=== PATIENT | female | born 1985 | race Caucasian/White ===

== ENCOUNTER 2017-05-02 08:21 | Emergency (ER) | payer OTHER ==
[~2017-05-02] VITALS: Ht 160 cm; Wt 58.0 kg
[~2017-05-02 08:21] MED LIST: DICY10CA55 PO; ETON1IMP2 SUBD; SUMA50TA15 PO
[2017-05-02 08:25] VITALS: Ht 160 cm; Wt 58.0 kg
[2017-05-02] MEDS ORDERED: SODIUM CHLORIDE 0.9% 1000ML 1,000 ML IV STA (08:44)
--- NOTE | 2017-05-02 08:50 | EMERGENCY ROOM VISIT NOTE ---
History First contact with patient: 08:32 Chief Complaint: SYNCOPE Stated Complaint: PASING OUT History of Present Illness The patient is a 31 year old female who presents to the Emergency Room with complaints of lightheadedness and general weakness/fatigue for the past 3 days. She states her symptoms started while driving through a tunnel, states she felt claustrophobic, tingly all over, and then her vision blacked out. 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 She states she has had 3 more episodes of feeling like she might pass out, all while driving, including this morning while driving to work, and she has been feeling tired and "off" all morning. She did not eat or drink anything today. She notes she has been having loose stools, she is concerned she might be dehydrated. She also states that she has been under a lot of stress recently, and feels this could be anxiety. She reports a history of ASD repair at age 3, states her caddy packer cleared her since age 14, with no ongoing complications or maintenance medications. She denies chest pain, SOB, palpitations, abdominal pain, nausea, vomiting, blood in stool, dysuria or hematuria, rash. Review of Systems A complete 10 point review of systems was reviewed with the patient with pertinent positives and negatives as per history of present illness. All else were negative. 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 Family History No pertinent family history Social History Smoking Status: Current Every Day Smoker Alcohol Use: none Drug Use: none Marital Status: single Housing Status: lives alone Occupation Status: employed, student Current/Historical Medications Scheduled Etonogestrel (Nexplanon), 68 MG SUBD UD Scheduled PRN Sumatriptan Succinate (Imitrex), Unknown Dose PO PRN PRN for Migraine Allergies Coded Allergies: Penicillins (Verified Allergy, Severe, NAUSEA, 05/02/17) Amoxicillin (Unverified Allergy, Unknown, NAUSEATED, 05/02/17) Clavulanic Acid (Unverified Allergy, Unknown, NAUSEATED, 05/02/17) Physical Exam Vital Signs Date Time Temp Pulse Resp B/P (MAP) Pulse Ox O2 Delivery O2 Flow Rate FiO2 05/02/17 10:56 36.5 65 21 110/56 99 05/02/17 10:29 65 21 05/02/17 09:59 70 20 99 05/02/17 09:54 110/56 05/02/17 08:55 98 Room Air 05/02/17 08:54 132/91 05/02/17 08:53 126/78 05/02/17 08:52 64 121/72 77 126/78 91 132/91 05/02/17 08:51 64 17 121/72 05/02/17 08:41 76 05/02/17 08:25 36.5 84 20 141/95 100 Room Air Physical Exam CONSTITUTIONAL: No acute distress. Well appearing and well nourished. Alert and oriented X 4 with normal affect. HEENT: Normocephalic, atraumatic. Pupils equal, round and reactive to light, EOMI. TMs normal. Pharynx normal. Moist mucous membranes. NECK: Supple, full active range of motion without discomfort. RESPIRATORY: Clear to auscultation bilaterally with no wheezing, crackles, rhonchi or stridor. Equal expansion bilaterally. CARDIOVASCULAR: Regular rate and rhythm with no murmurs, rubs or gallops. Normal peripheral perfusion. No edema. GASTROINTESTINAL: Soft, nontender, nondistended. Bowel sounds present in all quadrants. MUSCULOSKELETAL: Full range of motion of all joints without discomfort. INTEGUMENTARY: No rash or other significant dermatologic conditions noted. NEUROLOGIC: Cranial nerves II-XII grossly intact. No focal neurologic deficits noted. Normal strength, normal sensation, normal gait, normal speech, normal finger nose finger testing and negative Romberg. Medical Decision & Procedures ER Provider Diagnostic Interpretation: CHEST 2 VIEWS ROUTINE CLINICAL HISTORY: presyncope HISTORY OF ASD REPAIR COMPARISON STUDY: 07/09/2011 FINDINGS: There are postsurgical changes of a midline sternotomy. The cardiac and mediastinal contours are normal. There is no focal pulmonary consolidation. There is no failure. There are no pleural effusions. IMPRESSION: No active disease in the chest. Laboratory Results 05/02/17 09:05 Red Blood Count 4.97, Mean Corpuscular Volume 88.7, Mean Corpuscular Hemoglobin 31.2, Mean Corpuscular Hemoglobin Concent 35.1, Mean Platelet Volume 10.6, Neutrophils (%) (Auto) 63.7, Lymphocytes (%) (Auto) 23.4, Monocytes (%) (Auto) 10.1, Eosinophils (%) (Auto) 2.2, Basophils (%) (Auto) 0.4, Neutrophils # (Auto ) 6.20, Lymphocytes # (Auto) 2.28, Monocytes # (Auto) 0.98, Eosinophils # (Auto ) 0.21, Basophils # (Auto) 0.04 05/02/17 09:05 Test 05/02/17 08:30 05/02/17 09:05 Urine Color YELLOW Urine Appearance CLEAR (CLEAR) Urine pH 5.5 (4.5-7.5) Urine Specific [place] 1.011 (1.000-1.030) Urine Protein NEG (NEG) Urine Glucose (UA) NEG (NEG) Urine Ketones NEG (NEG) Urine Occult Blood NEG (NEG) Urine Nitrite NEG (NEG) Urine Bilirubin NEG (NEG) Urine Urobilinogen NEG (NEG) Urine Leukocyte Esterase NEG (NEG) White Blood Count 9.73 K/uL (4.8-10.8) Red Blood Count 4.97 M/uL (4.2-5.4) Hemoglobin 15.5 g/dL (12.0-16.0) Hematocrit 44.1 % (37-47) Mean Corpuscular Volume 88.7 fL (80-100) Mean Corpuscular Hemoglobin 31.2 pg (25-34) Mean Corpuscular Hemoglobin Concent 35.1 g/dl (32-36) Platelet Count 221 K/uL (130-400) Mean Platelet Volume 10.6 fL (7.4-10.4) Neutrophils (%) (Auto) 63.7 % Lymphocytes (%) (Auto) 23.4 % Monocytes (%) (Auto) 10.1 % Eosinophils (%) (Auto) 2.2 % Basophils (%) (Auto) 0.4 % Neutrophils # (Auto) 6.20 K/uL (1.4-6.5) Lymphocytes # (Auto) 2.28 K/uL (1.2-3.4) Monocytes # (Auto) 0.98 K/uL (0.11-0.59) Eosinophils # (Auto) 0.21 K/uL (0-0.5) Basophils # (Auto) 0.04 K/uL (0-0.2) RDW Standard Deviation 42.4 fL (36.4-46.3) RDW Coefficient of Variation 13.0 % (11.5-14.5) Immature Granulocyte % (Auto) 0.2 % Immature Granulocyte # (Auto) 0.02 K/uL (0.00-0.02) Anion Gap 8.0 mmol/L (3-11) Est Creatinine Clear Calc Drug Dose 62.4 ml/min Estimated GFR () 79.2 Estimated GFR (Non- 68.3 BUN/Creatinine Ratio 12.5 (10-20) Calcium Level 8.7 mg/dl (8.5-10.1) Total Bilirubin 0.3 mg/dl (0.2-1) Direct Bilirubin < 0.1 mg/dl (0-0.2) Aspartate Amino Transf (AST/SGOT) 15 U/L (15-37) Alanine Aminotransferase (ALT/SGPT) 19 U/L (12-78) Alkaline Phosphatase 93 U/L (45-117) Total Protein 8.1 gm/dl (6.4-8.2) Albumin 4.3 gm/dl (3.4-5.0) Thyroid Stimulating Hormone (TSH) 0.441 uIu/ml (0.300-4.500) Medications Administered Medications (Trade) Dose Ordered Sig/Tien Route Start Time Stop Time Status Last Admin Dose Admin Sodium Chloride 1,000 ml @ 999 mls/hr Q1H1M STAT IV 05/02/17 08:44 05/02/17 09:44 DC 05/02/17 08:44 999 MLS/HR ECG Indication: syncope Rate (beats per minute): 76 Rhythm: normal sinus Findings: no acute ischemic change, no ectopy Change: no significant change (when compared to EKG from 07/09/2011) Medical Decision CC: Patient presenting with complaint of dizziness, generalized fatigue Interpretation of Labs: No leukocytosis, no anemia, no significant joint abnormalities, normal renal function, normal liver enzymes. TSH normal. UA negative, negative urine . Differential Diagnosis: Includes, but not limited to syncope, presyncope, orthostasis, vasovagal, cardiac dysrhythmia, dehydration, electrolyte abnormality, thyroid disorder, UTI, , anxiety, among others. Medication Reconciliation: I attest that I have personally reviewed the patient' s current medication list. Vital signs review: I reviewed the patient's vital signs and interpret them as follows: T: Afebrile; BP: Hypertensive; HR: Within normal limits; RR: Within normal limits; Pulse Ox: Within normal limits on room air. Blood pressure screening: The patient was found to have an elevated blood pressure, on subsequent rechecks this return to normal, and was felt to be situational. Summary: Patient was evaluated at bedside, history and physical exam performed. Patient is oriented, in no acute distress, resting comfortably in the stretcher. Normal neuro exam, heart and lung exam unremarkable. Patient does not appear to be significantly dehydrated clinically. Patient does note significant increase in stress recently, and states she is feeling anxious. EKG reviewed at bedside, NSR with no acute changes when compared to previous. Orders were placed at bedside for labs, UA and , IV fluids for hydration, CXR to evaluate for cardiopulmonary disease. Patient discussed with Dr. Merritt, who agrees with my assessment and plan. Labs reviewed as above, no acute abnormalities. She is not . CXR clear. Patient was noted to have orthostatic heart rate, she did feel somewhat better after IV fluids. She does state that occasionally she has "feeling like my surroundings aren't normal" and states she is feeling a little anxious. She denies any persistent symptoms of dizziness or lightheadedness at this time. I discussed all results with the patient and plan for discharge home, and encouraged close follow-up with her PCP. She may benefit from a Holter monitor if her symptoms continue. Patient was instructed specifically not to drive until she has been cleared by her PCP, she verbalized understanding. She was also given strict return precautions should her symptoms worsen. The patient was comfortable with discharge at this time. Patient was discharged home in stable condition and ambulatory. Impression Primary Impression: Lightheaded Additional Impression: Near syncope Departure Information Dispostion Home / Self-Care Condition GOOD Referrals Boy No III, M.D. (PCP) Patient Instructions ED Near Syncope [place], My [facility] Additional Instructions You have been evaluated in the emergency department today for symptoms of dizziness/lightheadedness. Lab results and imaging studies today do not show any indications for admission to the hospital or surgery. DO NOT DRIVE until you have been cleared by your primary care provider. You may be slightly dehydrated, make sure you are drinking plenty of fluids throughout the day. Call to schedule a follow-up appointment with your primary care provider in the next few days. Please return to the emergency department for any worsening symptoms, including chest pain, shortness of breath, palpitations, severe dizziness or passing out, persistent vomiting, severe headache, balance problems or difficulty walking, or any other concerns. Work Instructions Additional Work Instructions: May return to work, but may not drive until she is cleared by her primary care provider. Problem Qualifiers
[2017-05-02 08:55] VITALS: O2SAT 98
[2017-05-02 09:04] LABS: URINE APPEARANCE CLEAR (CLEAR); URINE BILIRUBIN NEG (NEG); URINE COLOR YELLOW; URINE NITRITE NEG (NEG); URINE PH 5.5 (4.5-7.5); URINE SPECIFIC GRAVITY 1.011 (1.000-1.030); UROBILINOGEN NEG (NEG)
[2017-05-02 09:07] LABS: MANUAL MICROSCOPIC REQUIRED? NO; REVIEW REQ? NO
[2017-05-02 09:24] LABS: BASO % 0.4 %; BASO ABS # 0.04 K/uL (0-0.2); COMPLETE YES; EOS % 2.2 %; HEMATOCRIT 44.1 % (37-47); IG% 0.2 %; LYMPH % 23.4 %; LYMPH ABS # 2.28 K/uL (1.2-3.4); MEAN CELL VOLUME 88.7 fL (80-100); MEAN CORPUSCULAR HEMOGLOBIN 31.2 pg (25-34); MEAN CORPUSCULAR HGB CONC 35.1 g/dl (32-36); MEAN PLATELET VOLUME 10.6 fL (7.4-10.4); MONO % 10.1 %; NEUT % 63.7 %; PLATELET COUNT 221 K/uL (130-400); RED BLOOD COUNT 4.97 M/uL (4.2-5.4); WHITE BLOOD COUNT 9.73 K/uL (4.8-10.8)
[2017-05-02 09:40] LABS: ALT/SGPT 19 U/L (12-78); BLOOD UREA NITROGEN 14 mg/dl (7-18); BUN/CREATININE RATIO 12.5 (10-20); CALCIUM 8.7 mg/dl (8.5-10.1); CARBON DIOXIDE 22 mmol/L (21-32); CHLORIDE 110 mmol/L (98-107); CREATININE 1.08 mg/dl (0.60-1.20); GLUCOSE 97 mg/dl (70-99); POTASSIUM 3.9 mmol/L (3.5-5.1); SODIUM 140 mmol/L (136-145)
--- NOTE | 2017-05-02 09:48 | DIAGNOSTIC IMAGING REPORT ---
CHEST 2 VIEWS ROUTINE CLINICAL HISTORY: presyncope HISTORY OF ASD REPAIR COMPARISON STUDY: 07/09/2011 FINDINGS: There are postsurgical changes of a midline sternotomy. The cardiac and mediastinal contours are normal. There is no focal pulmonary consolidation. There is no failure. There are no pleural effusions.[ IMPRESSION: No active disease in the chest. Electronically signed by: Jomar Diaz M.D. 05/02/2017 9:47 AM Dictated Date/Time: 05/02/2017 9:47 AM
[2017-05-02 09:51] LABS: ALKALINE PHOSPHATASE 93 U/L (45-117); AST/SGOT 15 U/L (15-37); THYROID STIMULATING HORMONE 0.441 uIu/ml (0.300-4.500)
[2017-05-02 10:56] VITALS: BP 110/56; PULSE 65; TEMP 36.5; O2SAT 99
== END 2017-05-02 10:58 | disposition home or self-care (01) ==
LOC: C.EDB 08:22
DX: R42 Dizziness and giddiness (principal); M19.90 Unspecified osteoarthritis, unspecified site; F43.10 Post-traumatic stress disorder, unspecified; F32.9 Major depressive disorder, single episode, unspecified; F17.210 Nicotine dependence, cigarettes, uncomplicated; Z79.3 Long term (current) use of hormonal contraceptives

== ENCOUNTER 2017-06-02 15:09 | Emergency (ER) | payer OTHER ==
[~2017-06-02] VITALS: Ht 160 cm; Wt 57.7 kg
[~2017-06-02 15:09] MED LIST changes: -DICY10CA55 PO
[2017-06-02 15:18] VITALS: TEMP 36.9; Ht 160 cm; Wt 57.7 kg
[2017-06-02] MEDS ORDERED: CLIN300C10 PO (15:44)
[2017-06-02] MEDS ORDERED: HYDR-5688 PO (15:44)
[2017-06-02 16:07] VITALS: BP 104/74; PULSE 52; O2SAT 100
--- NOTE | 2017-06-02 17:28 | EMERGENCY ROOM VISIT NOTE ---
ED Visit Note First contact with patient: 15:22 CHIEF COMPLAINT: Severe dental pain. HISTORY OF PRESENT ILLNESS: Ms. Elizabeth is a 31-year-old white female who ambulates into the ED complaining of right mandibular dental pain. Historically patient reports a history of a root canal without And fracture of tooth 30. She reports a progressive dental pain for 18 hours over the right mandible in the area of tooth 30. Initially it was mild and has gradually increased in intensity. Currently she is describes the pain as a sharp and throbbing sensation. She rates her discomfort 9/10. The pain is radiating into the angle of the mandible. Her pain worsens with palpation and chewing. She has not identified any alleviating factors related to the pain. She reports she has been using ibuprofen and acetaminophen without relief of her discomfort. Associated with her pain she reports she has noted some facial swelling in the area of her pain. She denies associated symptoms including fevers, chills, sweats, skin eruptions, skin color changes, sore throat, difficulty swallowing, voice changes , drooling. REVIEW OF SYSTEMS: As noted above in History of Present Illness. 8 body systems were reviewed with this patient and found to be negative unless noted above otherwise. PMH: Migraine headaches, degenerative disc disease, arthritis, depression, posttraumatic stress disorder, status post open heart ASD repair. CURRENT MEDICATION: control, Imitrex. ALLERGIES TO MEDICATION: Augmentin. SOCIAL HISTORY: Patient is currently employed; she feels safe in her home environment; she admits to tobacco use and denies alcohol use. PHYSICAL EXAM: Vital Signs: Date Time Temp Pulse Resp B/P (MAP) Pulse Ox O2 Delivery O2 Flow Rate FiO2 06/02/17 16:07 52 18 104/74 100 06/02/17 15:18 36.9 66 18 131/84 100 Room Air General: 31 year-old white female in mild to moderate distress due to pain, nontoxic appearing, afebrile and hemodynamically stable. Neurological: Awake, alert and oriented to person, place and time. Answering questions appropriately and following commands. Normal gait. Good hand eye coordination. Skin: Warm, dry and pink. HEENT: Atraumatic and normocephalic. Mild facial swelling noted over the right mandible. No erythema. There is mild tenderness in this area. Oral cavity is moist and pink. Airway is patent. Speech is normal. No drooling. Tooth #30: Shows the posterior medial aspect of the tooth is missing. The gingiva is mildly erythematous and edematous. The tooth is tender to palpation but stable in the socket. I am unable to palpate an abscess directly. Mild submandibular lymphadenopathy was noted. No cervical lymphadenopathy. ED COURSE: Patient is assessed as noted above. Patient's medication list was reviewed. Patient is educated about her findings and instructed on her treatment plan; she verbalizes understanding and agreement with this plan. CLINIC IMPRESSION: Dental pain. Possible early dental abscess. DISPOSITION: Patient discharged home in stable condition; prior to departure she was reassessed and subjectively reported she was feeling the same. PLAN: Patient was prescribed clindamycin 300 mg times a day for 10 days. Patient was placed on a sliding pain scale of ibuprofen, acetaminophen and [place] ; patient was given appropriate narcotic precautions and her name was checked on state database and no red flags were noted. Patient was encouraged to keep her mouth clean with brushing, flossing and gargling with salt water 4-5 times a day. Patient was encouraged to use a liquid/mechanical soft diet room temperature. Patient was encouraged to cover the affected tooth with dental wax. Patient was encouraged to follow-up with dentist as soon as practical. Patient was encouraged return ED for worsening symptoms, fevers or any new/ concerning symptoms.
== END 2017-06-02 16:07 | disposition home or self-care (01) ==
LOC: C.EDB 15:10 → C.EDD 16:07
DX: K03.81 Cracked tooth (principal); F17.200 Nicotine dependence, unspecified, uncomplicated; Z79.3 Long term (current) use of hormonal contraceptives

== ENCOUNTER 2017-09-30 14:46 | Emergency (ER) | payer OTHER ==
[~2017-09-30] VITALS: Ht 160 cm; Wt 58.7 kg
[~2017-09-30 14:46] MED LIST changes: +CLIN300C10 PO; +HYDR-5688 PO
[2017-09-30 14:51] VITALS: BP 124/74; PULSE 71; TEMP 37.1; O2SAT 99; Ht 160 cm; Wt 58.7 kg
--- NOTE | 2017-09-30 15:10 | EMERGENCY ROOM VISIT NOTE ---
ED Visit Note First contact with patient: 14:55 CHIEF COMPLAINT: Toothache HISTORY OF PRESENT ILLNESS: This 31-year-old female presents to ER with chief complaint of right lower molar tooth pain. She states she is concerned about infection. The patient states that she was seen here in May for the same tooth. She went to her dentist at that time to get the tooth removed but her dentist stated that did not need to be removed. The patient states since that time more pieces of tooth have broken off. She states the edges are sharp. The patient states the pain is now radiating down into the right side of her neck. The patient denies any facial's pain or swelling. She has not taken anything for pain today. REVIEW OF SYSTEMS: 6 system review was performed and was negative unless stated otherwise in history of present illness. PMH: The patient is healthy; ASD repair SOCIAL HISTORY: Patient admits to tobacco use but denies any alcohol use. PHYSICAL EXAM: Vital Signs: Were reviewed reviewed Nurse's notes. General: 31- year-old white female appears in no acute distress. MENTAL Status: Alert and oriented 3. MOUTH: The #30 tooth with diffuse decay and a portion of it broken off. There is sharp edges on the medial aspect of the tooth. Surrounding gingiva without erythema or edema. The tooth is very tender to percussion. FACE: No facial swelling noted. NECK: Supple, no lymphadenopathy noted although patient is tender to palpation over the right anterior cervical chain. EMERGENCY COURSE: The patient was evaluated. Patient was given dental wax and directed on how to use the wax. The patient was given clindamycin 300 mg p.o. while in the ER. The patient was discharged home in stable condition. DIAGNOSIS: Dental caries and dentalgia DISCHARGE INSTRUCTIONS & TREATMENT: Ibuprofen 600 mg every 6 hours with food for pain. Use dental wax as directed. Take clindamycin as prescribed. Appointment with your dentist as soon as possible for definitive care. Problem List Medical Problems: (1) Arthritis Status: Chronic (2) Chronic post-traumatic stress disorder Status: Chronic (3) degenerative disc disease Status: Chronic (4) Migraine Status: Chronic (5) Moderate recurrent major depression Status: Chronic (6) open heart ASD Status: Resolved Current/Historical Medications Scheduled Clindamycin Hcl (Clindamycin Hcl), 300 MG PO QID Etonogestrel (Nexplanon), 68 MG SUBD UD Scheduled PRN Hydrocodone/Acetaminophen 5MG/325MG ([place] 5MG/325MG), 1-2 TABLET PO Q6H PRN for Pain Sumatriptan Succinate (Imitrex), Unknown Dose PO PRN PRN for Migraine Allergies Coded Allergies: Penicillins (Verified Allergy, Severe, NAUSEA, 06/02/17) Amoxicillin (Unverified Allergy, Unknown, NAUSEATED, 06/02/17) Clavulanic Acid (Unverified Allergy, Unknown, NAUSEATED, 06/02/17) Vital Signs Date Time Temp Pulse Resp B/P (MAP) Pulse Ox O2 Delivery O2 Flow Rate FiO2 09/30/17 14:51 37.1 71 18 124/74 99 Room Air Departure Information Referrals Boy No III, M.D. (PCP) Patient Instructions My [facility]
[2017-09-30] MEDS ORDERED: CLIN300C2 PO (15:11)
[2017-09-30] MEDS ORDERED: CLINDAMYCIN HCL 150 MG CAP PO ONE (15:15)
== END 2017-09-30 15:28 | disposition home or self-care (01) ==
LOC: C.EDB 14:47 → C.EDD 15:28
DX: K02.9 Dental caries, unspecified (principal); Z72.0 Tobacco use; M19.90 Unspecified osteoarthritis, unspecified site; F43.10 Post-traumatic stress disorder, unspecified; F32.9 Major depressive disorder, single episode, unspecified; Z79.3 Long term (current) use of hormonal contraceptives; Z88.0 Allergy status to penicillin

== ENCOUNTER 2022-03-30 21:20 | Inpatient (IN) ==
[2022-03-30 21:58] LABS: Basophils # (auto) 0.09 K/uL (0-0.2); Basophils % (auto) 0.9 %; Eosinophils # (auto) 0.12 K/uL (0-0.50); Eosinophils % (auto) 1.2 %; Hematocrit (blood only) 39.1 % (34.1-44.9); Hemoglobin 14.3 g/dl (12.0-16.0); Immature Granulocytes # (auto) 0.03 K/uL (0.00-0.02); Immature Granulocytes % (auto) 0.3 %; Lymphocytes # (auto) 4.02 K/uL (1.2-3.4); Lymphocytes % (auto) 40.4 %; Mean Corpuscular Hemoglobin 34.3 pg (25.0-34.0); Mean Corpuscular Hgb Conc 36.6 g/dL (32.0-36.0); Mean Corpuscular Volume 93.8 fL (80.0-100.0); Monocytes # (auto) 1.15 K/uL (0.24-0.82); Monocytes % (auto) 11.6 %; Neutrophils # (auto) 4.54 K/uL (1.4-6.5); Neutrophils % (auto) 45.6 %; Platelet Count 255 K/uL (130-400); RDW Standard Deviation 44.7 fL (36.4-46.3); Red Blood Count 4.17 M/uL (3.93-5.22); White Blood Count 9.95 K/ul (4.8-10.8)
[2022-03-30 22:17] LABS: Albumin Globulin Ratio 1.4 (0.9-2); Albumin Level 4.3 gm/dl (3.4-5.0); BUN Creatinine Ratio 17.2 (10-20); Bilirubin,Total 0.4 mg/dl (0.2-1.0); Calcium 8.5 mg/dl (8.5-10.1); Creatinine Clr Calc Pharmacy 82.1 ml/min; Est GFR (African American) 99.3 ml/min; Est GFR (Non-African American) 85.7 ml/min; Potassium 3.7 mmol/L (3.5-5.1); Total Protein 7.3 gm/dl (6.0-8.3)
[2022-03-30 22:39] LABS: Appearance Urine Clear (Clear); Bilirubin Urine Negative (Negative); Blood Urine Negative (Negative); Color Urine Yellow; Glucose Urine UA Negative (Negative); Ketones Urine Negative (Negative); Leukocyte Esterase Urine Negative (Negative); Nitrite Urine Negative (Negative); Protein Urine Negative (Negative); Specific Gravity Urine 1.005 (1.000-1.030); Urobilinogen Urine Negative (Negative); pH Urine 6.5 (4.5-7.5)
[2022-03-30] MEDS ORDERED: ONDANSETRON INJ 2 MG/ML 2 ML VIAL IV STA (22:41)
[2022-03-31] MEDS ORDERED: LORazepam 2 MG/2 ML SYR IV STA (00:35)
[2022-03-31] MEDS ORDERED: ACETAMINOPHEN 500 MG TAB PO STA (01:10)
[2022-03-31] MEDS ORDERED: MULTI-VITAMIN INFUSION 10 ML, THIAMINE HCL 100 MG, FOLIC ACID 1 MG in SODIUM CHLORIDE 0... IV ONE (01:11)
[2022-03-31] MEDS ORDERED: GABAPENTIN 600 MG TAB PO STA (02:02)
[2022-03-31] MEDS ORDERED: POTASSIUM CHLORIDE PWD 20 MEQ PACK PO STA (02:04)
--- NOTE | 2022-03-31 03:06 | History & Physical Report ---
Date of Service March 31, 2022 Assessment & Plan (1) Alcohol withdrawal: Plan: hx ASD status post surgery migraine, patient currently with headache symptoms which he attributes to alcohol cessation anxiety/mood disorder, patient not suicidal, would like to resume taking outpatient prescriptions which she has not taken for a few months. past tobacco abuse Medical telemetry GRAYSON S, DT precautions Toradol for migraine attack DVT prophylaxis. Lovenox subcu Full code Text document was generated using [employer] voice recognition software. It may contain grammatical or spelling errors. Kindly contact undersigned for clarification of any documentation item in question. History of Present Illness Chief Complaint: Detox Primary Care Provider: Dr. No History obtained from patient and records. Medical history significant for ASD status post surgery, migraine, anxiety/mood disorder, ongoing alcohol abuse, past tobacco abuse. [facility] seeking outpatient alcohol rehab. Patient directed to ER for detox. Patient denies chest pain, SOB, abdominal pain. Usual migraine attack which is triggered when she stops drinking. Prior history of alcohol withdrawal seizures to her knowledge. Medical History as above Surgical History : Open heart surgery, cervical cryocautery Family History : Rheumatoid arthritis, SLE Personal/Social history : Past tobacco abuse, alcohol abuse, currently unemployed Allergies Allergy/AdvReac Type Severity Reaction Status Date / Time Penicillins Allergy Severe NAUSEA Verified 05/16/18 17:15 amoxicillin Allergy Unknown NAUSEATED Unverified 05/16/18 17:15 clavulanic acid Allergy Unknown NAUSEATED Unverified 05/16/18 17:15 Home Medications Medication Instructions Recorded Confirmed Type etonogestrel 68 mg subdermal 68 mg subdermal YEARLY 05/16/18 03/31/22 History implant (Nexplanon) control dicyclomine 10 mg capsule 10 mg PO TID PRN Abdominal 03/31/22 03/31/22 History Discomfort hydroxyzine HCl 10 mg tablet 10 mg PO Q4H PRN Anxiety 03/31/22 03/31/22 History sertraline 50 mg tablet 50 mg PO DAILY 03/31/22 03/31/22 History Past Med/Surg History Medical History (Updated 03/31/22 @ 07:44 by Asiya Savage DO) Chronic post-traumatic stress disorder (07/18/11) Headache Near syncope Pain, dental Rectal bleed Social History Smoking Status: Current every day smoker Tobacco Cessation Education Requested by Patient: No Hx Alcohol Use: Yes Alcohol type: hard liquor Hx Substance Use: No Preferred Language: Indonesian Communication Ability: Effective [employer]ter Required: Yes Beliefs That Will Affect Care: None Feels Safe at Home: Yes Assistive Devices: None Review of Systems Review of Systems: As per HPI, all other systems reviewed and negative Physical Exam Physical Exam: GENERAL: uncomfortable, looks older than stated age, no respiratory distress SKIN: Normal color, warm HEENT: [place] palpebral conjunctivae, no ptosis, dry buccal mucosa NECK : Supple, no tenderness CHEST : CTA, no tenderness HEART : Tachycardic, no obvious murmurs ABDOMEN: Some distention, nontender EXTREMITIES : Minimal LE swelling, no LE tenderness, no other conspicuous deformities noted NEUROLOGIC : Coherent, no facial asymmetry, no other gross focality Results & Data Results & Data ([facility]) Vital Signs (Past 12 Hours) Vital Signs Temp Pulse Resp BP Pulse Ox O2 Del Method 03/31/22 01:05 115 H 19 03/31/22 00:31 92 H 20 03/31/22 00:31 124/90 03/31/22 00:30 91 H 26 H 03/31/22 00:01 88 23 03/31/22 00:01 122/92 03/31/22 00:00 87 22 03/30/22 23:31 93/80 L 03/30/22 23:31 86 16 100 03/30/22 23:30 85 21 98 03/30/22 23:26 85 20 99 03/30/22 23:26 123/80 03/30/22 23:01 90 27 H 03/30/22 23:01 118/62 03/30/22 23:00 91 H 27 H 03/30/22 22:42 121 H 25 H 03/30/22 21:25 36.4 C L 112 H 20 150/92 H 97 Room Air Laboratory Results Laboratory Results WBC 9.95 K/ul (4.8-10.8) 03/30/22 21:40 RBC 4.17 M/uL (3.93-5.22) 03/30/22 21:40 Hgb 14.3 g/dl (12.0-16.0) 03/30/22 21:40 Hct 39.1 % (34.1-44.9) 03/30/22 21:40 MCV 93.8 fL (80.0-100.0) 03/30/22 21:40 MCH 34.3 pg (25.0-34.0) H 03/30/22 21:40 MCHC 36.6 g/dL (32.0-36.0) H 03/30/22 21:40 RDW Std Deviation 44.7 fL (36.4-46.3) 03/30/22 21:40 RDW Coeff of Aparna 13.0 % (11.5-14.5) 03/30/22 21:40 Plt Count 255 K/uL (130-400) 03/30/22 21:40 MPV 10.0 fL (9.4-12.3) 03/30/22 21:40 Immature Gran % (Auto) 0.3 % 03/30/22 21:40 Neut % (Auto) 45.6 % 03/30/22 21:40 Lymph % (Auto) 40.4 % 03/30/22 21:40 [place] % (Auto) 11.6 % 03/30/22 21:40 Eos % (Auto) 1.2 % 03/30/22 21:40 Baso % (Auto) 0.9 % 03/30/22 21:40 Neut # (Auto) 4.54 K/uL (1.4-6.5) 03/30/22 21:40 Lymph # (Auto) 4.02 K/uL (1.2-3.4) H 03/30/22 21:40 [place] # (Auto) 1.15 K/uL (0.24-0.82) H 03/30/22 21:40 Eos # (Auto) 0.12 K/uL (0-0.50) 03/30/22 21:40 Baso # (Auto) 0.09 K/uL (0-0.2) 03/30/22 21:40 Immature Gran # (Auto) 0.03 K/uL (0.00-0.02) H 03/30/22 21:40 Sodium 138 mmol/L (136-145) 03/30/22 21:40 Potassium 3.7 mmol/L (3.5-5.1) 03/30/22 21:40 Chloride 108 mmol/L (98-107) H 03/30/22 21:40 Carbon Dioxide 21 mmol/L (21-32) 03/30/22 21:40 Anion Gap 9 (3-11) 03/30/22 21:40 BUN 15 mg/dl (6-23) 03/30/22 21:40 Creatinine 0.87 mg/dl (0.6-1.2) 03/30/22 21:40 Est Cr Clr Drug Dosing 82.1 ml/min 03/30/22 21:40 Est GFR ( Amer) 99.3 ml/min 03/30/22 21:40 Est GFR (Non-Af Amer) 85.7 ml/min 03/30/22 21:40 BUN/Creatinine Ratio 17.2 (10-20) 03/30/22 21:40 Glucose 106 mg/dl (70-99(Fasting)) H 03/30/22 21:40 Calcium 8.5 mg/dl (8.5-10.1) 03/30/22 21:40 Total Bilirubin 0.4 mg/dl (0.2-1.0) 03/30/22 21:40 AST 26 U/L (13-39) 03/30/22 21:40 ALT 19 U/L (7-52) 03/30/22 21:40 Alkaline Phosphatase 83 U/L (34-104) 03/30/22 21:40 Total Protein 7.3 gm/dl (6.0-8.3) 03/30/22 21:40 Albumin 4.3 gm/dl (3.4-5.0) 03/30/22 21:40 Globulin 3.0 gm/dl (2.5-4.0) 03/30/22 21:40 Albumin/Globulin Ratio 1.4 (0.9-2) 03/30/22 21:40 Urine Color Yellow 03/30/22 22:13 Urine Appearance Clear (Clear) 03/30/22 22:13 Urine pH 6.5 (4.5-7.5) 03/30/22 22:13 Ur Specific [place] 1.005 (1.000-1.030) 03/30/22 22:13 Urine Protein Negative (Negative) 03/30/22 22:13 Urine Glucose (UA) Negative (Negative) 03/30/22 22:13 Urine Ketones Negative (Negative) 03/30/22 22:13 Urine Blood Negative (Negative) 03/30/22 22:13 Urine Nitrite Negative (Negative) 03/30/22 22:13 Urine Bilirubin Negative (Negative) 03/30/22 22:13 Urine Urobilinogen Negative (Negative) 03/30/22 22:13 Ur Leukocyte Esterase Negative (Negative) 03/30/22 22:13 Ethyl Alcohol mg/dL 327.8 mg/dl (<10.0) H 03/30/22 21:40 SARS-CoV-2, RNA, NAAT NEGATIVE (NEGATIVE) 03/31/22 01:16 Diagnostic Findings EKG as per my interpretation : Rate 100, NSR, normal axis, T wave abnormality septal leads
[2022-03-31] MEDS ORDERED: KETOROLAC TROMETHAMINE 15 MG/ML VIAL IV STA (03:08)
[2022-03-31] MEDS ORDERED: Ativan IV Alcohol Withdrawal--Active Protocol IV PRN (03:11)
[2022-03-31] MEDS ORDERED: LORazepam 3 MG in SYRINGE 0 ML IV PRN (03:11)
[2022-03-31] MEDS ORDERED: PROMETHAZINE HCL 12.5 MG in SODIUM CHLORIDE 0.9% 50 ML IV PRN ×2 (03:11→04:38)
[2022-03-31] MEDS ORDERED: IBUPROFEN 200 MG TAB PO PRN (03:11)
[2022-03-31] MEDS ORDERED: hydrOXYzine HCl 10 MG TAB PO PRN (03:14)
[2022-03-31] MEDS ORDERED: DICYCLOMINE HCL 10 MG CAP PO PRN (03:14)
[2022-03-31 04:31] LABS: Pregnancy Test, Urine Negative (Negative)
[2022-03-31] MEDS ORDERED: LACTATED RINGER'S 1,000 ML IV ONE (04:36)
[2022-03-31] MEDS ORDERED: GABAPENTIN 1200MG ALCOHOL WITHDRAWAL LOAD PO STA (04:38)
[2022-03-31 07:02] LABS: Basophils # (auto) 0.06 K/uL (0-0.2); Basophils % (auto) 1.1 %; Eosinophils # (auto) 0.07 K/uL (0-0.50); Eosinophils % (auto) 1.3 %; Hematocrit (blood only) 34.7 % (34.1-44.9); Hemoglobin 12.2 g/dl (12.0-16.0); Immature Granulocytes # (auto) 0.02 K/uL (0.00-0.02); Immature Granulocytes % (auto) 0.4 %; Lymphocytes # (auto) 2.17 K/uL (1.2-3.4); Lymphocytes % (auto) 39.7 %; Mean Corpuscular Hemoglobin 33.3 pg (25.0-34.0); Mean Corpuscular Hgb Conc 35.2 g/dL (32.0-36.0); Mean Corpuscular Volume 94.8 fL (80.0-100.0); Mean Platelet Volume 10.1 fL (9.4-12.3); Monocytes # (auto) 0.64 K/uL (0.24-0.82); Monocytes % (auto) 11.7 %; Neutrophils % (auto) 45.8 %; Platelet Count 208 K/uL (130-400); RDW Coefficient of Variation 13.1 % (11.5-14.5); RDW Standard Deviation 45.1 fL (36.4-46.3); Red Blood Count 3.66 M/uL (3.93-5.22); White Blood Count 5.46 K/ul (4.8-10.8)
[2022-03-31 07:11] LABS: BUN Creatinine Ratio 19.4 (10-20); Calcium 7.6 mg/dl (8.5-10.1); Est GFR (African American) 134.5 ml/min; Magnesium 2.1 mg/dl (1.7-2.4); Potassium 4.2 mmol/L (3.5-5.1)
--- NOTE | 2022-03-31 07:46 | Emergency Department Note ---
Impression & Plan Alcohol withdrawal Admit to the [facility] service ED Provider Note NAME: MIREYA APPIAH AGE: 36 SEX: F ARRIVES VIA: Walk-In INFORMANT: Patient ED PROVIDER(S): Asiya Savage DO CHIEF COMPLAINT: Alcohol withdrawal; detox request PLAN: Disposition: Admit to [facility] Condition: Fair MEDICAL DECISION MAKING: This is a 36-year-old female patient who presents to the emergency department with alcoholism and requests detox. Patient has been drinking a pint of tequila for more than a year now and feels as if she is physically addicted. She has fo llowed at [facility] through [facility] drug and alcohol. She is now requesting inpatient detox and referral to rehab. Her blood alcohol level was elevated more than 300 here in the emergency department. She became agitated in the emergency department due to anxiety and was given IV Ativan. She was started on IV normal saline solution and then switched to an IV banana bag. I discussed the case with the [facility] and they will evaluate for inpatient care. Triage Nursing notes reviewed and agree with them. Prior medical records reviewed Vital Signs: reviewed and remarkable for tachycardia Differential diagnosis: Alcohol intoxication; alcohol withdrawal; anxiety ER treatment provided: IV normal saline IV Ativan IV banana bag Diagnostics interpreted by me: Cardiac Monitoring: Sinus tachycardia at 104 Laboratory studies: See below HPI: 36/F arrives for evaluation of detox request. The patient describes being physically addicted to alcohol over the past year and she is requesting detox. The patient follows at [place] through [facility] drug and alcohol. They directed her here for detox and probable placement at [facility] drug and alcohol. ROS: See above HPI for pertinent positives & negatives. A total of 10 systems reviewed and were otherwise negative. PAST MEDICAL HISTORY:See Below PAST SURGICAL HISTORY:See Below FAMILY HISTORY:See Below SOCIAL HISTORY:See Below HOME MEDICATIONS:See list ALLERGIES:See list VITALS:See Below PHYSICAL EXAMINATION: HEENT: Head - normocephalic and atraumatic. Pupils are equal, round, and reactive to light. Extraocular eye muscles are intact, and sclera are anicteric. Nose - moist nasal mucosa without discharge. Mouth - moist buccal mucosa. Oropharynx is nonerythematous and there is no tonsillar exudate or edema noted. Neck: Supple; no cervical lymphadenopathy or thyromegaly Heart: Regular rate and rhythm. There is a normal S1 and S2 with no murmurs, clicks, or gallops appreciated. Lungs: Clear to auscultation bilaterally with no wheezes, rales, or rhonchi. Abdomen: Soft, completely nontender, nondistended, with good bowel sounds. T here are no palpable pulsatile masses or hepatosplenomegaly. There is no guarding, rigidity, or rebound noted. Extremities: No evidence of cyanosis, clubbing, or edema. There are easily palpable peripheral pulses. Skin: warm and dry with good turgor and no rashes; multiple tattoos ED COURSE: Times/Reassessments: 0015: Patient was evaluated in room A-10. A complete history and physical was performed. An IV lock was initiated and labs were d rawn as above. An order was placed for continuous cardiac monitoring. The patient was in a sinus tachycardia at a rate of 104. Patient was given IV normal saline solution. She was evaluated by the ED psychiatric protective services case worker. She became quite agitated and we discussed comprehensive detox and rehab facilities as they are most likely at a distance. She was given a dose of IV Ativan. I discussed the case with the [facility] and they will evaluate for further management. Asiya Savage DO Past Med/Surg History Medical History (Updated 03/31/22 @ 07:44 by Asiya Savage DO) Chronic post-traumatic stress disorder (07/18/11) Headache Near syncope Pain, dental Rectal bleed Social History Smoking Status: Current every day smoker Tobacco Cessation Education Requested by Patient: No Hx Alcohol Use: Yes Alcohol type: hard liquor Hx Substance Use: No Preferred Language: Sudanese Communication Ability: Effective [employer] Required: Yes Beliefs That Will Affect Care: None Feels Safe at Home: Yes Assistive Devices: None Allergies Allergies Allergy/AdvReac Type Severity Reaction Status Date / Time Penicillins Allergy Severe NAUSEA Verified 05/16/18 17:15 amoxicillin Allergy Unknown NAUSEATED Unverified 05/16/18 17:15 clavulanic acid Allergy Unknown NAUSEATED Unverified 05/16/18 17:15 Home Meds Home Medications Medication Instructions Recorded Confirmed etonogestrel 68 mg subdermal 68 mg subdermal YEARLY 05/16/18 03/31/22 implant (Nexplanon) control dicyclomine 10 mg capsule 10 mg PO TID PRN Abdominal 03/31/22 03/31/22 Discomfort hydroxyzine HCl 10 mg tablet 10 mg PO Q4H PRN Anxiety 03/31/22 03/31/22 sertraline 50 mg tablet 50 mg PO DAILY 03/31/22 03/31/22 Results & Data (ED) Vital Signs Vital Signs - 24 hr 03/30/22 21:25 03/30/22 22:42 03/30/22 23:00 Temperature 36.4 C L Temperature Source Temporal Artery Scan Pulse Rate 112 H 121 H 91 H Pulse Rate from SpO2 Sensor Respiratory Rate 20 25 H 27 H Respiratory Depth Normal Blood Pressure 150/92 H Blood Pressure Mean 111 Pulse Oximetry 97 Oxygen Delivery Method Room Air Sepsis New/Unexplained Change in Mental Status N/A Sepsis Action Taken by Nursing No Action Required 03/30/22 23:01 03/30/22 23:01 03/30/22 23:26 Temperature Temperature Source Pulse Rate 90 Pulse Rate from SpO2 Sensor Respiratory Rate 27 H Respiratory Depth Blood Pressure 118/62 123/80 Blood Pressure Mean 80 94 Pulse Oximetry Oxygen Delivery Method Sepsis New/Unexplained Change in Mental Status Sepsis Action Taken by Nursing 03/30/22 23:26 03/30/22 23:30 03/30/22 23:31 Temperature Temperature Source Pulse Rate 85 85 86 Pulse Rate from SpO2 Sensor 83 85 87 Respiratory Rate 20 21 16 Respiratory Depth Blood Pressure Blood Pressure Mean Pulse Oximetry 99 98 100 Oxygen Delivery Method Sepsis New/Unexplained Change in Mental Status Sepsis Action Taken by Nursing 03/30/22 23:31 03/31/22 00:00 03/31/22 00:01 Temperature Temperature Source Pulse Rate 87 Pulse Rate from SpO2 Sensor Respiratory Rate 22 Respiratory Depth Blood Pressure 93/80 L 122/92 Blood Pressure Mean 84 102 Pulse Oximetry Oxygen Delivery Method Sepsis New/Unexplained Change in Mental Status Sepsis Action Taken by Nursing 03/31/22 00:01 03/31/22 00:30 03/31/22 00:31 Temperature Temperature Source Pulse Rate 88 91 H Pulse Rate from SpO2 Sensor Respiratory Rate 23 26 H Respiratory Depth Blood Pressure 124/90 Blood Pressure Mean 101 Pulse Oximetry Oxygen Delivery Method Sepsis New/Unexplained Change in Mental Status Sepsis Action Taken by Nursing 03/31/22 00:31 03/31/22 01:05 03/31/22 02:00 Temperature Temperature Source Pulse Rate 92 H 115 H Pulse Rate from SpO2 Sensor Respiratory Rate 20 19 Respiratory Depth Blood Pressure 102/71 Blood Pressure Mean 81 Pulse Oximetry Oxygen Delivery Method Sepsis New/Unexplained Change in Mental Status Sepsis Action Taken by Nursing 03/31/22 02:00 03/31/22 02:30 03/31/22 02:30 Temperature Temperature Source Pulse Rate Pulse Rate from SpO2 Sensor Respiratory Rate 20 17 Respiratory Depth Blood Pressure 102/58 L Blood Pressure Mean 72 Pulse Oximetry Oxygen Delivery Method Sepsis New/Unexplained Change in Mental Status Sepsis Action Taken by Nursing 03/31/22 03:00 03/31/22 03:00 Temperature Temperature Source Pulse Rate 106 H Pulse Rate from SpO2 Sensor Respiratory Rate 16 Respiratory Depth Blood Pressure 108/60 Blood Pressure Mean 76 Pulse Oximetry Oxygen Delivery Method Sepsis New/Unexplained Change in Mental Status Sepsis Action Taken by Nursing Laboratory Data Result diagrams: 03/31/22 06:14 03/31/22 06:14 Lab Results 03/30/22 03/30/22 03/30/22 Range/Units 21:30 21:40 21:40 WBC 9.95 (4.8-10.8) K/ul RBC 4.17 (3.93-5.22) M/uL Hgb 14.3 (12.0-16.0) g/dl Hct 39.1 (34.1-44.9) % MCV 93.8 (80.0-100.0) fL MCH 34.3 H (25.0-34.0) pg MCHC 36.6 H (32.0-36.0) g/dL RDW Std Deviation 44.7 (36.4-46.3) fL RDW Coeff of Aparna 13.0 (11.5-14.5) % Plt Count 255 (130-400) K/uL MPV 10.0 (9.4-12.3) fL Immature Gran % (Auto) 0.3 % Neut % (Auto) 45.6 % Lymph % (Auto) 40.4 % [place] % (Auto) 11.6 % Eos % (Auto) 1.2 % Baso % (Auto) 0.9 % Neut # (Auto) 4.54 (1.4-6.5) K/uL Lymph # (Auto) 4.02 H (1.2-3.4) K/uL [place] # (Auto) 1.15 H (0.24-0.82) K/uL Eos # (Auto) 0.12 (0-0.50) K/uL Baso # (Auto) 0.09 (0-0.2) K/uL Immature Gran # (Auto) 0.03 H (0.00-0.02) K/uL Sodium 138 (136-145) mmol/L Potassium 3.7 (3.5-5.1) mmol/L Chloride 108 H (98-107) mmol/L Carbon Dioxide 21 (21-32) mmol/L Anion Gap 9 (3-11) BUN 15 (6-23) mg/dl Creatinine 0.87 (0.6-1.2) mg/dl Est Cr Clr Drug Dosing 82.1 ml/min Est GFR ( Amer) 99.3 ml/min Est GFR (Non-Af Amer) 85.7 ml/min BUN/Creatinine Ratio 17.2 (10-20) Glucose 106 H (70-99(Fasting)) mg/dl Calcium 8.5 (8.5-10.1) mg/dl Magnesium Cancelled Total Bilirubin 0.4 (0.2-1.0) mg/dl AST 26 (13-39) U/L ALT 19 (7-52) U/L Alkaline Phosphatase 83 (34-104) U/L Total Protein 7.3 (6.0-8.3) gm/dl Albumin 4.3 (3.4-5.0) gm/dl Globulin 3.0 (2.5-4.0) gm/dl Albumin/Globulin Ratio 1.4 (0.9-2) Urine Color Urine Appearance (Clear) Urine pH (4.5-7.5) Ur Specific [place] (1.000-1.030) Urine Protein (Negative) Urine Glucose (UA) (Negative) Urine Ketones (Negative) Urine Blood (Negative) Urine Nitrite (Negative) Urine Bilirubin (Negative) Urine Urobilinogen (Negative) Ur Leukocyte Esterase (Negative) Urine Test (Negative) Ethyl Alcohol mg/dL (<10.0) mg/dl SARS-CoV-2, RNA, NAAT (NEGATIVE) 03/30/22 03/30/22 03/31/22 Range/Units 21:40 22:13 01:16 WBC (4.8-10.8) K/ul RBC (3.93-5.22) M/uL Hgb (12.0-16.0) g/dl Hct (34.1-44.9) % MCV (80.0-100.0) fL MCH (25.0-34.0) pg MCHC (32.0-36.0) g/dL RDW Std Deviation (36.4-46.3) fL RDW Coeff of Aparna (11.5-14.5) % Plt Count (130-400) K/uL MPV (9.4-12.3) fL Immature Gran % (Auto) % Neut % (Auto) % Lymph % (Auto) % [place] % (Auto) % Eos % (Auto) % Baso % (Auto) % Neut # (Auto) (1.4-6.5) K/uL Lymph # (Auto) (1.2-3.4) K/uL [place] # (Auto) (0.24-0.82) K/uL Eos # (Auto) (0-0.50) K/uL Baso # (Auto) (0-0.2) K/uL Immature Gran # (Auto) (0.00-0.02) K/uL Sodium (136-145) mmol/L Potassium (3.5-5.1) mmol/L Chloride (98-107) mmol/L Carbon Dioxide (21-32) mmol/L Anion Gap (3-11) BUN (6-23) mg/dl Creatinine (0.6-1.2) mg/dl Est Cr Clr Drug Dosing ml/min Est GFR ( Amer) ml/min Est GFR (Non-Af Amer) ml/min BUN/Creatinine Ratio (10-20) Glucose (70-99(Fasting)) mg/dl Calcium (8.5-10.1) mg/dl Magnesium Total Bilirubin (0.2-1.0) mg/dl AST (13-39) U/L ALT (7-52) U/L Alkaline Phosphatase (34-104) U/L Total Protein (6.0-8.3) gm/dl Albumin (3.4-5.0) gm/dl Globulin (2.5-4.0) gm/dl Albumin/Globulin Ratio (0.9-2) Urine Color Yellow Urine Appearance Clear (Clear) Urine pH 6.5 (4.5-7.5) Ur Specific [place] 1.005 (1.000-1.030) Urine Protein Negative (Negative) Urine Glucose (UA) Negative (Negative) Urine Ketones Negative (Negative) Urine Blood Negative (Negative) Urine Nitrite Negative (Negative) Urine Bilirubin Negative (Negative) Urine Urobilinogen Negative (Negative) Ur Leukocyte Esterase Negative (Negative) Urine Test (Negative) Ethyl Alcohol mg/dL 327.8 H (<10.0) mg/dl SARS-CoV-2, RNA, NAAT NEGATIVE (NEGATIVE) 03/31/22 Range/Units 01:30 WBC (4.8-10.8) K/ul RBC (3.93-5.22) M/uL Hgb (12.0-16.0) g/dl Hct (34.1-44.9) % MCV (80.0-100.0) fL MCH (25.0-34.0) pg MCHC (32.0-36.0) g/dL RDW Std Deviation (36.4-46.3) fL RDW Coeff of Aparna (11.5-14.5) % Plt Count (130-400) K/uL MPV (9.4-12.3) fL Immature Gran % (Auto) % Neut % (Auto) % Lymph % (Auto) % [place] % (Auto) % Eos % (Auto) % Baso % (Auto) % Neut # (Auto) (1.4-6.5) K/uL Lymph # (Auto) (1.2-3.4) K/uL [place] # (Auto) (0.24-0.82) K/uL Eos # (Auto) (0-0.50) K/uL Baso # (Auto) (0-0.2) K/uL Immature Gran # (Auto) (0.00-0.02) K/uL Sodium (136-145) mmol/L Potassium (3.5-5.1) mmol/L Chloride (98-107) mmol/L Carbon Dioxide (21-32) mmol/L Anion Gap (3-11) BUN (6-23) mg/dl Creatinine (0.6-1.2) mg/dl Est Cr Clr Drug Dosing ml/min Est GFR ( Amer) ml/min Est GFR (Non-Af Amer) ml/min BUN/Creatinine Ratio (10-20) Glucose (70-99(Fasting)) mg/dl Calcium (8.5-10.1) mg/dl Magnesium Total Bilirubin (0.2-1.0) mg/dl AST (13-39) U/L ALT (7-52) U/L Alkaline Phosphatase (34-104) U/L Total Protein (6.0-8.3) gm/dl Albumin (3.4-5.0) gm/dl Globulin (2.5-4.0) gm/dl Albumin/Globulin Ratio (0.9-2) Urine Color Urine Appearance (Clear) Urine pH (4.5-7.5) Ur Specific [place] (1.000-1.030) Urine Protein (Negative) Urine Glucose (UA) (Negative) Urine Ketones (Negative) Urine Blood (Negative) Urine Nitrite (Negative) Urine Bilirubin (Negative) Urine Urobilinogen (Negative) Ur Leukocyte Esterase (Negative) Urine Test Negative (Negative) Ethyl Alcohol mg/dL (<10.0) mg/dl SARS-CoV-2, RNA, NAAT (NEGATIVE) Administered Medications Acetaminophen (Acetaminophen 325 Mg Tab) 650 mg PO Q6H PRN PRN Reason: Fever/pain Stop: 04/30/22 03:10 Last Admin: 03/31/22 08:24 Dose: 650 mg Documented By: CC Chlordiazepoxide HCl (Chlordiazepoxide Hcl 25 Mg Cap) 50 mg PO Q6H [facility]; Taper Stop: 04/03/22 07:59 Last Admin: 03/31/22 15:06 Dose: 50 mg Documented By: Admin: 03/31/22 08:24 Dose: 50 mg Documented By: CC Enoxaparin Sodium (Enoxaparin Inj 40 Mg/0.4 Ml Syr) [facility] Stop: 04/30/22 08:59 Last Admin: 03/31/22 08:05 Dose: 40 mg Documented By: CC Folic Acid (Folic Acid 1 Mg Tab) 1 mg PO QAM [facility] Stop: 04/30/22 08:59 Last Admin: 03/31/22 08:04 Dose: 1 mg Documented By: CC Hydroxyzine HCl (Hydroxyzine Hcl 10 Mg Tab) 10 mg PO Q4H PRN PRN Reason: Anxiety Stop: 04/30/22 03:13 Last Admin: 03/31/22 08:59 Dose: 10 mg Documented By: GOYO Lorazepam 0.5 mg/ Syringe 0.5 mls @ 2 mls/min IV Q4H PRN PRN Reason: Anxiety Stop: 04/30/22 07:57 Last Admin: 03/31/22 18:13 Dose: 2 mls/min Documented By: GOYO Ibuprofen (Ibuprofen 200 Mg Tab) 200 mg PO Q6H PRN PRN Reason: Mild Pain Stop: 04/30/22 03:10 Last Admin: 03/31/22 05:09 Dose: 200 mg Documented By: SILVINO Ketorolac Tromethamine (Ketorolac Tromethamine 15 Mg/Ml Vial) 15 mg IV Q6H PRN PRN Reason: Pain Stop: 04/05/22 03:10 Last Admin: 03/31/22 09:28 Dose: 15 mg Documented By: GOYO Multivitamins (Multivitamin Tab) 1 tab PO QAM EBEN Stop: 04/30/22 08:59 Last Admin: 03/31/22 08:04 Dose: 1 tab Documented By: GOYO Sertraline HCl (Sertraline Hcl 50 Mg Tablet) 50 mg PO DAILY EBEN Stop: 04/30/22 08:59 Last Admin: 03/31/22 08:59 Dose: 50 mg Documented By: GOYO Thiamine HCl (Thiamine Hcl 100 Mg Tab) 100 mg PO QAM EBEN Stop: 04/30/22 08:59 Last Admin: 03/31/22 08:04 Dose: 100 mg Documented By: GOYO Discontinued Medications Acetaminophen (Acetaminophen 500 Mg Tab) 1,000 mg PO NOW STA Stop: 03/31/22 01:11 Last Admin: 03/31/22 01:15 Dose: 1,000 mg Documented By: PENNY Gabapentin (Gabapentin 600 Mg Tab) 1,200 mg PO NOW STA Stop: 03/31/22 02:03 Last Admin: 03/31/22 02:29 Dose: 1,200 mg Documented By: PENNY Multivitamins 10 ml/ Thiamine HCl 100 mg/ Folic Acid 1 mg/Sodium Chloride 1,011.2 mls @ 1,011.2 mls/hr IV .Q1H ONE Stop: 03/31/22 02:10 Last Infusion: 03/31/22 03:16 Dose: 0 mls/hr Documented By: Admin: 03/31/22 01:34 Dose: 1,011.2 mls/hr Documented By: PENNY Lactated Ringer's (Lr) 1,000 mls @ 100 mls/hr IV .Q10H ONE Stop: 03/31/22 14:35 Last Infusion: 03/31/22 15:24 Dose: 0 mls/hr Documented By: Admin: 03/31/22 05:10 Dose: 100 mls/hr Documented By: MARI Lorazepam 0.5 mg/ Syringe 0.5 mls @ 2 mls/min IV Q6H PRN PRN Reason: Anxiety Stop: 04/30/22 07:57 Last Admin: 03/31/22 11:49 Dose: 2 mls/min Documented By: GOYO Ketorolac Tromethamine (Ketorolac Tromethamine 15 Mg/Ml Vial) 15 mg IV NOW STA Stop: 03/31/22 03:09 Last Admin: 03/31/22 03:13 Dose: 15 mg Documented By: PENNY Lorazepam (Lorazepam 2 Mg/2 Ml Syr) 1 mg IV NOW STA; Protocol Stop: 03/31/22 00:36 Last Admin: 03/31/22 00:49 Dose: 1 mg Documented By: AMANDA Ondansetron HCl (Ondansetron Inj 2 Mg/Ml 2 Ml Vial) 4 mg IV NOW STA Stop: 03/30/22 22:42 Last Admin: 03/30/22 22:46 Dose: 4 mg Documented By: PENNY Potassium Chloride (Potassium Chloride Pwd 20 Meq Pack) 40 meq PO NOW STA Stop: 03/31/22 02:05 Last Admin: 03/31/22 03:09 Dose: 40 meq Documented By: PENNY Discharge Plan Visit Data Chief Complaint: Detox Request Stated Complaint: MEDICAL DETOX ED Provider: Asiya Savage Discharge Problem: Alcohol withdrawal Patient Disposition: Admitted As Inpatient Discharge Instructions Interventions: ED Discharge Assessment Last Done: 03/31/22 04:32
[2022-03-31] MEDS ORDERED: chlordiazePOXIDE ALCOHOL WITHDRAWL 50MG PO STA (07:56)
[2022-03-31] MEDS ORDERED: LORazepam 0.5 MG in SYRINGE 0 ML IV PRN (07:58)
[2022-03-31] MEDS ORDERED: GABAPENTIN 600 MG TAB PO SCH ×2 (08:00→22:00)
[2022-03-31] MEDS: FOLIC ACID 1 MG TAB PO SCH (08:04)
[2022-03-31] MEDS: THIAMINE HCL 100 MG TAB PO SCH (08:04)
[2022-03-31] MEDS: MULTIVITAMIN TAB PO SCH (08:04)
[2022-03-31] MEDS: ENOXAPARIN INJ 40 MG/0.4 ML SYR SQ SCH (08:05)
[2022-03-31] MEDS: ACETAMINOPHEN 325 MG TAB PO PRN (08:24)
[2022-03-31] MEDS: chlordiazePOXIDE HCl 25 MG CAP PO SCH ×3 (08:24→22:31)
[2022-03-31] MEDS: SERTRALINE HCL 50 MG TABLET PO SCH (08:59)
--- NOTE | 2022-03-31 09:06 | Electrocardiogram Report ---
Test Reason : Blood Pressure : / mmHG Vent. Rate : 098 BPM Atrial Rate : 098 BPM P-R Int : 138 ms QRS Dur : 074 ms QT Int : 352 ms P-R-T Axes : 048 052 045 degrees QTc Int : 449 ms Normal sinus rhythm Low voltage QRS Borderline ECG When compared with ECG of 02-MAY-2017 08:35, No significant change was found Confirmed by Rayo Campbell ([id number]) on 03/31/2022 9:05:27 AM Referred By: REFERRED SELF Confirmed By:Rayo Campbell
[2022-03-31] MEDS: KETOROLAC TROMETHAMINE 15 MG/ML VIAL IV PRN (09:28)
--- NOTE | 2022-03-31 16:48 | Hospitalist Progress Note ---
Date of Service March 31, 2022 Assessment & Plan (1) Alcohol withdrawal: Plan: Patient admits to drinking 1 bottle of vodka per day Last drink yesterday Change gabapentin protocol to Librium protocol Added lorazepam 0.5 mg IV as needed for anxiety Continue alcohol withdrawal protocol Discussed with GAVIOTA marroquin ASD status post surgery migraine, patient currently with headache symptoms which he attributes to alcohol cessation As needed Toradol anxiety/mood disorder, patient not suicidal As needed lorazepam Next past tobacco abuse DVT prophylaxis. Lovenox subcu Full code plan of care discussed with patient in detail and at length all questions answered she is understanding, agreeable, comfortable with the plan of care Admission and Anticipated Discharge Date Admission Date: March 31, 2022 Subjective Follow-up for alcohol withdrawal, etc. Seen sitting up in bed, comfortable, not in distress Alert, oriented x3 States she feels anxious, has migrainous headache Denies confusion, hallucinations Also has some mild tremors No nausea or vomiting, tolerating food well No fevers or chills No other symptoms Review of Systems Review of Systems: all noted and negative except for above Physical Exam Physical Exam: General- oriented x 3, not in distress, speaks in sentences with no effort or accessory muscle use Eyes- anicteric Neck- no JVD Lungs- clear breath sounds bilaterally, no rales/wheezes Heart- normal rate, regular rhythm; no murmurs Abdomen- normal bowel sounds, nondistended, soft, nontender Extremities- no pretibial edema, no calf tenderness Mild hand tremors Neuro- alert, oriented x 3; no gross focal neurologic deficits Skin- warm & dry Results & Data Results & Data ([facility]) Vital Signs (Past 12 Hours) Vital Signs Temp Pulse Resp BP Pulse Ox O2 Del Method 03/31/22 16:07 36.9 C 82 18 129/79 98 Room Air 03/31/22 11:29 36.9 C 96 H 19 120/80 98 Room Air 03/31/22 08:00 36.8 C 93 H 20 123/82 99 Room Air all noted and reviewed including below
[2022-03-31 17:06] LABS: Partial Thromboplastin Ratio 0.9; Partial Thromboplastin Time 25.4 Seconds (21.0-31.0); Prothrombin Time 10.4 Seconds (9.0-12.0)
[2022-03-31] MEDS: LORazepam 0.5 MG in SYRINGE 0 ML IV PRN (18:13)
[2022-03-31] MEDS: LORazepam 1 MG in SYRINGE 0 ML IV PRN (22:47)
[2022-04-01] MEDS: chlordiazePOXIDE HCl 25 MG CAP PO SCH ×3 (02:12→16:14)
[2022-04-01] MEDS: LORazepam 2 MG in SYRINGE 0 ML IV PRN (03:45)
[2022-04-01] MEDS: LORazepam 1 MG in SYRINGE 0 ML IV PRN ×4 (06:46→23:16)
[2022-04-01] MEDS: THIAMINE HCL 100 MG TAB PO SCH (08:45)
[2022-04-01] MEDS: FOLIC ACID 1 MG TAB PO SCH (08:45)
[2022-04-01] MEDS: SERTRALINE HCL 50 MG TABLET PO SCH (08:45)
[2022-04-01] MEDS: MULTIVITAMIN TAB PO SCH (08:45)
[2022-04-01] MEDS: ENOXAPARIN INJ 40 MG/0.4 ML SYR SQ SCH (08:45)
--- NOTE | 2022-04-01 16:08 | Hospitalist Progress Note ---
Date of Service April 01, 2022 Assessment & Plan (1) Alcohol withdrawal: Plan: Patient admits to drinking 1 bottle of vodka per day Last drink yesterday Change gabapentin protocol to Librium protocol Added lorazepam 0.5 mg IV as needed for anxiety Continue alcohol withdrawal protocol Discussed with GAVIOTA Orantes 04/01 Alcohol withdrawal score 7-8 Continue Librium protocol Continue lorazepam IV as needed hx ASD status post surgery migraine -- Headache resolved As needed Toradol anxiety/mood disorder -- Denies suicidal ideations Admits to having depression symptoms, anxiety at home leading to drinking alcohol Currently on sertraline Will consult psychiatry service past tobacco abuse DVT prophylaxis. Lovenox subcu Full code plan of care discussed with patient in detail and at length all questions answered she is understanding, agreeable, comfortable with the plan of care Admission and Anticipated Discharge Date Admission Date: March 31, 2022 Subjective Follow-up for alcohol withdrawal, etc. Patient's parents and son visiting Obtain permission from patient to discuss medical information with her family, patient agreeable Seen resting in bed, sitting up, not in distress States she feels okay overall Has some anxiety, mild hand tremors Denies nausea abdominal pain, headache, confusion Tolerating diet well Requesting to have a shower Also reports current sertraline not helping with her depression symptoms Denies suicidal ideation No other symptom Review of Systems Review of Systems: all noted and negative except for above Physical Exam Physical Exam: General- oriented x 3, not in distress, speaks in sentences with no effort or accessory muscle use Eyes- anicteric Neck- no JVD Lungs- clear breath sounds bilaterally, no crackles noted Heart- normal rate, regular rhythm; no murmurs Abdomen- normal bowel sounds, nondistended, soft, nontender Extremities- no pretibial edema, no calf tenderness Mild hand tremors Neuro- alert, oriented x 3; no gross focal neurologic deficits Skin- warm & dry Psych-appropriate affect Denies suicidal ideation Results & Data Results & Data ([facility]) Vital Signs (Past 12 Hours) Vital Signs Temp Pulse Pulse Resp BP Pulse Ox O2 Del Method 04/01/22 12:00 36.8 C 75 18 116/78 98 Room Air 04/01/22 08:33 36.2 C L 72 18 121/82 97 Room Air 04/01/22 07:39 73 04/01/22 06:00 36.8 C 68 24 126/80 99 Room Air all noted and reviewed including below
[2022-04-01] MEDS: ACETAMINOPHEN 325 MG TAB PO PRN ×2 (16:16→23:20)
[2022-04-02] MEDS: chlordiazePOXIDE HCl 25 MG CAP PO SCH ×3 (00:13→16:30)
[2022-04-02] MEDS ORDERED: GABAPENTIN 600 MG TAB PO SCH (02:00)
[2022-04-02] MEDS: LORazepam 2 MG in SYRINGE 0 ML IV PRN ×3 (04:44→11:49)
[2022-04-02] MEDS: THIAMINE HCL 100 MG TAB PO SCH (07:43)
[2022-04-02] MEDS: FOLIC ACID 1 MG TAB PO SCH (07:43)
[2022-04-02] MEDS: SERTRALINE HCL 50 MG TABLET PO SCH (07:43)
[2022-04-02] MEDS: MULTIVITAMIN TAB PO SCH (07:43)
[2022-04-02] MEDS: ENOXAPARIN INJ 40 MG/0.4 ML SYR SQ SCH (07:43)
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
[2022-04-02] MEDS ORDERED: DICYCLOMINE HCL 10 MG CAP PO PRN (11:14)
--- NOTE | 2022-04-02 16:44 | Hospitalist Progress Note ---
Date of Service April 02, 2022 Assessment & Plan (1) Alcohol withdrawal: Plan: Patient admits to drinking 1 bottle of vodka per day Last drink yesterday Change gabapentin protocol to Librium protocol Added lorazepam 0.5 mg IV as needed for anxiety Continue alcohol withdrawal protocol Discussed with GAVIOTA Orantes 04/02 Alcohol withdrawal score 7-8 Symptoms well controlled overall Continue Librium protocol Continue lorazepam IV as needed anxiety/mood disorder -- Denies suicidal ideations Admits to having depression symptoms, anxiety at home leading to drinking alcohol Currently on sertraline Will consult psychiatry service History of IBS --Continue Bentyl 30 mg twice daily, which patient uses at home Monitor hx ASD status post surgery migraine -- Headache resolved As needed Toradol DVT prophylaxis. Lovenox subcu Full code plan of care discussed with patient in detail and at length all questions answered she is understanding, agreeable, comfortable with the plan of care Admission and Anticipated Discharge Date Admission Date: March 31, 2022 Subjective Follow-up for alcohol withdrawal, etc. Seen sleeping but easily awakened States she feels okay overall Mild tremors, and anxiety Having some abdominal discomfort today and loose bowel movement x1, typical of her IBS Denies confusion, night sweats No other symptoms Review of Systems Review of Systems: all noted and negative except for above Physical Exam Physical Exam: General- oriented x 3, not in distress, speaks in sentences with no effort or accessory muscle use Eyes- anicteric Neck- no JVD Lungs- clear BS BL Heart- normal rate, regular rhythm; no murmurs Abdomen- normal bowel sounds, mild distention, but soft, nontender Extremities- no pretibial edema, no calf tenderness Neuro- alert, oriented x 3; no gross focal neurologic deficits Skin- warm & dry Results & Data Results & Data ([facility]) Vital Signs (Past 12 Hours) Vital Signs Temp Pulse Pulse Resp BP Pulse Ox O2 Del Method 04/02/22 16:00 36.7 C 94 H 22 115/79 98 Room Air 04/02/22 07:00 66 04/02/22 12:00 36.8 C 93 H 18 110/74 99 Room Air 04/02/22 07:22 36.5 C 83 18 109/76 100 Room Air 04/02/22 06:20 36.7 C 64 18 110/70 99 Room Air 04/02/22 05:06 64 all noted and reviewed including below
[2022-04-02] MEDS: LORazepam 1 MG in SYRINGE 0 ML IV PRN ×2 (16:48→20:07)
[2022-04-02] MEDS: KETOROLAC TROMETHAMINE 15 MG/ML VIAL IV PRN (22:05)
[2022-04-02] MEDS: ACETAMINOPHEN 325 MG TAB PO PRN (23:42)
[2022-04-02] MEDS: LORazepam 0.5 MG in SYRINGE 0 ML IV PRN (23:47)
[2022-04-03] MEDS: chlordiazePOXIDE HCl 25 MG CAP PO SCH (00:31)
[2022-04-03] MEDS: MULTIVITAMIN TAB PO SCH (08:00)
[2022-04-03] MEDS: THIAMINE HCL 100 MG TAB PO SCH (08:00)
[2022-04-03] MEDS: ENOXAPARIN INJ 40 MG/0.4 ML SYR SQ SCH (08:01)
[2022-04-03] MEDS: FOLIC ACID 1 MG TAB PO SCH (09:50)
[2022-04-03] MEDS: LORazepam 0.5 MG in SYRINGE 0 ML IV PRN ×2 (11:23→21:18)
[2022-04-03] MEDS: SERTRALINE HCL 50 MG TABLET PO SCH (13:06)
[2022-04-03] MEDS ORDERED: GABAPENTIN 600 MG TAB PO SCH (14:00)
--- NOTE | 2022-04-03 16:35 | Hospitalist Progress Note ---
Date of Service April 03, 2022 Assessment & Plan (1) Alcohol withdrawal: Plan: Patient admits to drinking 1 bottle of vodka per day Last drink yesterday Change gabapentin protocol to Librium protocol Added lorazepam 0.5 mg IV as needed for anxiety Continue alcohol withdrawal protocol Discussed with GAVIOTA Orantes 04/02 Alcohol withdrawal score 7-8 Symptoms well controlled overall Continue Librium protocol Continue lorazepam IV as needed 04/03 Alcohol withdrawal scale overnight is 2 Patient progressing following supine Continue Librium protocol taper Continue as needed lorazepam anxiety/mood disorder -- Denies suicidal ideations Admits to having depression symptoms, anxiety at home leading to drinking alcohol Currently on sertraline Will consult psychiatry service Message Dr. Harish Christiansen to resume Zoloft Consider gabapentin if with increasing anxiety Monitor closely History of IBS --Continue Bentyl 30 mg twice daily, which patient uses at home Abdominal pain, diarrhea resolved hx ASD status post surgery migraine -- Headache resolved As needed Toradol DVT prophylaxis. Lovenox subcu Full code Disposition Patient prefers to return to home when she is medically stable plan of care discussed with patient in detail and at length all questions answered she is understanding, agreeable, comfortable with the plan of care Admission and Anticipated Discharge Date Admission Date: March 31, 2022 Subjective Follow-up alcohol withdrawal, etc. Seen resting in bed, sitting up, not in distress Reports some anxiety, tremors today No confusion, hallucinations, night sweats Abdominal pain is resolved Tolerating diet No fevers or chills No other symptoms Review of Systems Review of Systems: all noted and negative except for above Physical Exam Physical Exam: General- oriented x 3, not in distress, speaks in sentences with no effort or accessory muscle use Eyes- anicteric Neck- no JVD Lungs- clear BS bilaterally No crackles or wheezing Heart- normal rate, regular rhythm; no murmurs Abdomen- normal bowel sounds, nondistended, soft, nontender Extremities- no pretibial edema, no calf tenderness Minimal hand tremors Neuro- alert, oriented x 3; no gross focal neurologic deficits Skin- warm & dry Results & Data Results & Data ([facility]) Vital Signs (Past 12 Hours) Vital Signs Temp Pulse Pulse Resp BP BP Pulse Ox 04/03/22 15:43 83 04/03/22 15:01 36.3 C L 81 18 105/71 97 04/03/22 11:40 36.4 C L 63 18 102/63 96 04/03/22 10:17 73 04/03/22 07:38 36.9 C 79 18 124/79 96 O2 Del Method 04/03/22 15:43 04/03/22 15:01 Room Air 04/03/22 11:40 Room Air 04/03/22 10:17 04/03/22 07:38 Room Air all noted and reviewed including below
[2022-04-03] MEDS: KETOROLAC TROMETHAMINE 15 MG/ML VIAL IV PRN (21:17)
[2022-04-04] MEDS: ACETAMINOPHEN 325 MG TAB PO PRN (02:29)
[2022-04-04] MEDS: LORazepam 1 MG in SYRINGE 0 ML IV PRN (05:16)
[2022-04-04] MEDS: MULTIVITAMIN TAB PO SCH (08:25)
[2022-04-04] MEDS: THIAMINE HCL 100 MG TAB PO SCH (08:25)
[2022-04-04] MEDS: ENOXAPARIN INJ 40 MG/0.4 ML SYR SQ SCH (08:25)
[2022-04-04] MEDS: SERTRALINE HCL 50 MG TABLET PO SCH (08:25)
[2022-04-04] MEDS: FOLIC ACID 1 MG TAB PO SCH (08:25)
--- NOTE | 2022-04-04 17:58 | Hospitalist Progress Note ---
Date of Service April 04, 2022 Assessment & Plan (1) Alcohol withdrawal: Plan: Patient admits to drinking 1 bottle of vodka per day Last drink day prior to admission Placed on Librium alcohol withdrawal protocol Also as needed Ativan Patient progressed well No development of DTs Completed Librium protocol taper Discharged on short course of gabapentin taper Patient prefers outpatient alcohol cessation program [facility] Follow-up with PCP in 1 week anxiety/mood disorder -- Denies suicidal ideations Admits to having depression symptoms, anxiety at home leading to drinking alcohol Currently on sertraline Consulted psychiatry service Okay to resume Zoloft, Vistaril as needed Gabapentin taper for anxiety History of IBS --Continue Bentyl 30 mg twice daily, which patient uses at home Abdominal pain, diarrhea resolved hx ASD status post surgery migraine -- Headache resolved As needed Toradol DVT prophylaxis. Lovenox subcu given Full code Disposition Discharge to home Follow-up with PCP in 1 week plan of care discussed with patient in detail and at length all questions answered she is understanding, agreeable, comfortable with the plan of care Admission and Anticipated Discharge Date Admission Date: March 31, 2022 Subjective Follow-up for alcohol withdrawal, etc. Seen resting in bed, comfortable, not in distress Good spirits States she feels much better overall Still has some anxiety but much better No tremors, confusion, night sweats No abdominal pain No other symptoms Ambulating with no problems States she is ready And would like to be To be discharged today Review of Systems Review of Systems: all noted and negative except for above Physical Exam Physical Exam: General- oriented x 3, not in distress, speaks in sentences with no effort or accessory muscle use Eyes- anicteric Neck- no JVD Lungs- clear breath sounds bilaterally, no rales/wheezes Heart- normal rate, regular rhythm; no murmurs Abdomen- normal bowel sounds, nondistended, soft, nontender Extremities- no pretibial edema, no calf tenderness No tremors Neuro- alert, oriented x 3; no gross focal neurologic deficits Skin- warm & dry Results & Data Results & Data ([facility]) Vital Signs (Past 12 Hours) Vital Signs Temp Pulse Pulse Resp BP BP Pulse Ox 04/04/22 09:15 36.8 C 63 20 105/71 111/72 98 04/04/22 08:02 36.8 C 63 20 111/72 98 04/04/22 07:50 72 O2 Del Method 04/04/22 09:15 04/04/22 08:02 Room Air 04/04/22 07:50 all noted and reviewed including below
--- NOTE | 2022-04-04 17:58 | Discharge Summary ---
Discharge Summary Date of Service April 04, 2022 Notes For Next Care Provider Please ensure patient is following with outpatient alcohol cessation program Medication Changes From Visit Gabapentin 300 mg p.o. taper Admission HPI Per Admitting Provider History obtained from patient and records. Medical history significant for ASD status post surgery, migraine, anxiety/mood disorder, ongoing alcohol abuse, past tobacco abuse. Patient went to [facility] yesterday seeking outpatient alcohol rehab. Patient directed to ER for detox. Patient denies chest pain, SOB, abdominal pain. Usual migraine attack which is triggered when she stops drinking. Prior history of alcohol withdrawal seizures to her knowledge. Medical History as above Surgical History : Open heart surgery, cervical cryocautery Family History : Rheumatoid arthritis, SLE Personal/Social history : Past tobacco abuse, alcohol abuse, currently unemployed Admission Exam Per Admitting Provider GENERAL: uncomfortable, looks older than stated age, no respiratory distress SKIN: Normal color, warm HEENT: [place] palpebral conjunctivae, no ptosis, dry buccal mucosa NECK : Supple, no tenderness CHEST : CTA, no tenderness HEART : Tachycardic, no obvious murmurs ABDOMEN: Some distention, nontender EXTREMITIES : Minimal LE swelling, no LE tenderness, no other conspicuous deformities noted NEUROLOGIC : Coherent, no facial asymmetry, no other gross focality Principal Dx & Hospital Course #1 = Principal Diagnosis (1) Alcohol withdrawal: Alcohol withdrawal Admitted from alcohol rehab Patient admits to drinking 1 bottle of vodka per day Last drink day prior to admission Placed on Librium alcohol withdrawal protocol Also as needed Ativan Patient progressed well No development of DTs Completed Librium protocol taper Discharged on short course of gabapentin taper Patient [facility]up with PCP in 1 week Depression, anxiety -- Denies suicidal ideations Admits to having depression symptoms, anxiety at home leading to drinking alcohol Currently on sertraline Consulted psychiatry service Okay to resume Zoloft, Vistaril as needed Gabapentin taper for anxiety History of IBS --Continue Bentyl 30 mg twice daily, which patient uses at home Abdominal pain, diarrhea resolved hx ASD status post surgery Migraine -- Headache resolved As needed Toradol DVT prophylaxis. Lovenox subcu given Full code Disposition Discharge to home Follow-up with PCP in 1 week Outpatient alcohol cessation program plan of care discussed with patient in detail and at length all questions answered she is understanding, agreeable, comfortable with the plan of care Discharge Exam General- oriented x 3, not in distress, speaks in sentences with no effort or accessory muscle use Eyes- anicteric Neck- no JVD Lungs- clear breath sounds bilaterally, no rales/wheezes Heart- normal rate, regular rhythm; no murmurs Abdomen- normal bowel sounds, nondistended, soft, nontender Extremities- no pretibial edema, no calf tenderness No tremors Neuro- alert, oriented x 3; no gross focal neurologic deficits Skin- warm & dry Updated Medication List Medication Instructions Recorded Confirmed Type etonogestrel 68 mg subdermal 68 mg subdermal YEARLY 05/16/18 03/31/22 History implant (Nexplanon) control hydroxyzine HCl 10 mg tablet 10 mg PO Q4H PRN Anxiety 03/31/22 03/31/22 History sertraline 50 mg tablet 50 mg PO DAILY 03/31/22 03/31/22 History dicyclomine 10 mg capsule 30 mg PO BID PRN Abdominal 04/04/22 03/31/22 Rx Discomfort 7 days #30 caps gabapentin 300 mg capsule 300 mg PO UD #9 caps 04/04/22 Rx multivitamin with folic acid 400 1 tab PO QAM 30 days #30 tabs 04/04/22 Rx mcg tablet (Daily-[facility] (with folic acid)) Hospital Stay Data Consultations 03/31/22 01:21 ED Decision to Admit Stat 04/01/22 13:22 Consult Psychiatry Routine Pending Results Patient Have Any Pending Studies at Discharge: No Discharge Instructions Given to Patient (Per Discharging Provider) PLEASE REFER TO YOUR NEW MEDICATION LIST AND FOLLOW INSTRUCTIONS CAREFULLY. YOUR NEW MEDICATIONS INCLUDE: Gabapentin taper-to help with anxiety related to alcohol withdrawal Drink plenty of fluids. Ambulate frequently at home. PLEASE CALL YOUR PRIMARY CARE PHYSICIAN OR RETURN TO THE ER IF WITH WORSENING OF SYMPTOMS, INCLUDING Tremors, shakiness, sweating, increasing anxiety or depression symptoms, etc. FOLLOW UP WITH PRIMARY CARE PHYSICIAN in 1 week. FOLLOW-UP WITH [facility] FOR CONTINUED OUTPATIENT ALCOHOL CESSATION PROGRAM. Total Time Total Time Spent Total Time Spent (In Minutes): >30 minutes
== END 2022-04-04 09:45 | disposition home or self-care (01) | DRG 897 ==
LOC: ED 21:20 → 2N 03-31 03:08